=== PATIENT | female | born 1980 | race Two or more races ===

== ENCOUNTER 2021-02-06 20:02 | Emergency (ER) | payer MEDICAID, SELFPAY ==
--- NOTE | ~2021-02-06 | CT_ITS ---
EXAMINATION: CTA OF THE HEAD AND NECK CTA of the chest. CLINICAL INFORMATION: dizziness and syncope. head trauma. bleed? stroke? COMPARISON: CT head dated 09/14/2018 TECHNIQUE: Initial unenhanced CT images of the head were obtained. Test bolus sequences followed by intravenous administration of 70.3 mL of Omnipaque 350. Helical imaging was performed in the axial plane from the lung bases to the skull vertex. The entire chest was included as part of this study. Delayed postcontrast imaging of the head was also performed. The data was processed at the radiographic technologist's workstation for generation of MIP sequences. Three-dimensional volume rendered reformatted images were also generated at an offline 3-D workstation. Stenoses are assessed in accordance with NASCET criteria unless otherwise indicated. DLP: 09/20/2005 mGy-cm. FINDINGS: CT head: There is no evidence of acute intracranial hemorrhage or territorial infarction. There is no loss of villegas to white matter differentiation. No abnormal mass effect or midline shift is seen. No extra-axial fluid collections are identified. There is no abnormal enhancement. The ventricles are normal in size. There is no abnormal attenuation within the brain parenchyma. The osseous structures and soft tissues are normal. The mastoid air cells and visualized portions of the paranasal sinuses are well aerated. CTA neck and chest: The aortic arch is of normal contour and caliber. Pulmonary arteries appear patent without evidence of emboli. Classic 3 vessel branching pattern of the aortic arch. No significant stenosis of the branch origins. The common and internal carotid arteries opacify normally without focal stenosis or occlusion. At the left V3 segment, there is focal ectasia of the vertebral artery just proximal to its intradural extent, measuring up to 4 mm in diameter. Additionally, there is a oblique linear band of nonenhancing tissue which crosses the lumen of the vessel in this region of focal ectasia (see serrato images). This could correspond to a small pseudoaneurysm with a thin associated intimal flap. A focal fenestration of the vertebral artery (normal variant) is on the differential, though felt to be less likely. Surrounding soft tissues are unremarkable. No hematomas. No adjacent fractures. The cervical segments of the vertebral arteries otherwise opacify normally without focal stenosis or occlusion. The thyroid gland and remaining cervical soft tissues are within normal limits. No significant abnormalities of the cervical spine. The lungs appear clear aside from mild dependent atelectasis. Heart is normal in size. No acute mediastinal abnormalities are identified. No adenopathy. Imaged portion of the upper abdomen is unremarkable. Thoracic aorta is normal in caliber. CTA head: There is normal opacification of major intracranial arteries. No focal flow-limiting stenosis, discrete proximal large artery occlusion, or saccular intradural aneurysm. Normal contrast opacification of the petrous, cavernous, paraophthalmic, and supraclinoid segments of the internal carotid arteries without focal stenosis. Normal appearance of the anterior cerebral and middle cerebral arteries without focal occlusion or stenosis. Normal anterior communicating artery. Normal arborization of the middle cerebral arteries. Normal appearance of the intradural vertebral and posterior inferior cerebellar arteries. Normal appearance of the basilar, superior cerebellar, and P1 segments of the posterior cerebral arteries. Normally opacified posterior communicating arteries. Normal appearance of the distal segments of the posterior cerebral arteries bilaterally. CT/CT angio head neck IMPRESSION: 1. Focal ectasia of the V3 segment of the left vertebral artery with a thin crossing intimal flap, concerning for a small pseudoaneurysm. A small focal vertebral artery fenestration is also on the differential. No associated traumatic injuries are identified in this region. No surrounding hematomas. No additional acute vascular abnormalities are identified on the CTA of the head and neck. A dedicated neuroradiology over read will be provided in the morning. 2. No acute intracranial abnormalities. This critical result was discussed by telephone with JENNY Grimaldo at 02/07/2021 1:18 AM.
[2021-02-06 20:13] VITALS: BP 153/85; PULSE 67; RESP 16; BMI 32.3
--- NOTE | 2021-02-06 20:32 | ECG_ITS ---
Test Reason : DIZZINESS Blood Pressure : / mmHG Vent. Rate : 070 BPM Atrial Rate : 070 BPM P-R Int : 182 ms QRS Dur : 086 ms QT Int : 436 ms P-R-T Axes : 043 000 040 degrees QTc Int : 470 ms Normal sinus rhythm Normal ECG When compared with ECG of 14-SEP-2018 00:54, No significant change was found Referred By: Jarrod Izquierdo Electronically Signed By:Angus Gupta
[2021-02-06] MEDS: 0.9 % Sodium Chloride 1,000 ML 999 ML IV (20:40)
[2021-02-06 20:44] LABS: MANUAL DIFF FLAG NO
[2021-02-06 20:49] LABS: Basophils Percent Auto 0.3 % (0-2); Eosinophils Absolute Auto 0.2 X10*3/uL (0.0-0.4); Eosinophils Percent Auto 1.7 % (0-4); Hematocrit 35.7 % (37-47); Hemoglobin 11.6 g/dl (12.0-16.0); Imm Gran Abs Auto 0.05 X10*3/uL (0.00-0.03); Imm Gran Pct Auto 0.5 % (0.0-0.4); Lymphocytes Absolute Auto 3.2 X10*3/uL (1.2-4.9); Mean Corpuscular HGB Conc 32.5 g/dl (31.0-35.0); Mean Corpuscular Hemoglobin 28.4 pg (27.0-33.0); Mean Corpuscular Volume 87.5 fL (80-98); Mean Platelet Volume 9.7 fL (9.4-12.3); Monocytes Absolute Auto 0.8 X10*3/uL (0.1-1.2); Monocytes Percent Auto 8.8 % (2-11); Neutrophils Absolute Auto 5.2 X10*3/uL (2.0-8.3); Neutrophils Percent Auto 54.7 % (45-73); Platelet Count 349 X10*3/uL (160-400); Red Blood Count 4.08 X10*6/uL (4.20-5.50); Red Cell Distribution Width 13.2 % (11.0-16.0); White Blood Count 9.4 X10*3/uL (4.8-10.8)
[2021-02-06 20:53] LABS: Prothrombin Time 11.7 SEC (10.8-13.0)
[2021-02-06 20:58] VITALS: BP 130/75; PULSE 70
[2021-02-06 21:00] VITALS: BP 131/71; PULSE 89
[2021-02-06 21:02] VITALS: BP 136/67; PULSE 76
[2021-02-06 21:22] LABS: Alanine Aminotransferase 9 U/L (0-31); Alkaline Phosphatase 81 U/L (39-117); Anion Gap 12 (12-20); Aspartate Amino Transferase 11 U/L (5-31); Bilirubin Total 0.3 mg/dL (0.0-1.0); Blood Urea Nitrogen 16 mg/dL (9-16); Calcium 9.2 mg/dL (8.4-10.2); Carbon Dioxide 24 mmol/L (22-29); Chloride 108 mmol/L (96-108); Creatinine Clr Calc Pharmacy 123.6; Estimated Glomerular Filt Rate > 60; Glucose Random 94 mg/dL (60-115); Potassium 3.9 mmol/L (3.3-5.1); Sodium 140 mmol/L (135-145); Total Protein 6.9 g/dL (6.5-8.0)
[2021-02-06 21:29] LABS: Troponin-I High Sensitivity < 3.5 ng/L (<3.5-17.0)
[2021-02-06 21:35] LABS: Delay - Chemistry DELAY
--- NOTE | 2021-02-06 21:35 | ED.GENADULT ---
HPI - General Adult General Chief complaint: Dizziness Stated complaint: Syncope Time Seen by Provider: 02/06/21 20:31 Source: patient Mode of arrival: ambulatory Limitations: no limitations History of Present Illness HPI narrative: Patient brought to the ED Patient for evaluation. Patient presents to ED for fall 10 days ago and than syncopal episode yesterday. Patient states having dizziness the past 5 days. Patient was sent to the ED by [facility] WAREHOUSE ADMINISTRATOR Emery Carr. He informed that patient fell 10 days ago and than had syncopal episode yesterday. He states on physical exam patient has right sided facial numbness and right sided strength weaker than left. He states patient had similar presentation last year with normal head CT, NOrmal MRI ( of this november), NOrmal EEG, and normal carotid ultrasound. Patient states her right facial numbness, right upper/ leg weakness numbness has been present for 9 months since falling 9 months ago and she states all her tests were normal Related Data Previous Rx's Medication Instructions Recorded aspirin 81 mg PO DAILY #30 tab 02/07/21 Allergies Allergy/AdvReac Type Severity Reaction Status Date / Time No Known Allergies Allergy Unverified 05/04/20 19:30 [No Known Allergies*] Review of Systems Review of Systems: Yes all other systems are reviewed and are negative Constitutional: Constitutional: Reports as per HPI and Reports no additional constitutional complaints Eyes: Eyes: Reports as per HPI and Reports no additional eye complaints ENT: Reports system reviewed and no additional complaints, except as documented, Reports as per HPI and Reports dizziness Cardiovascular: Cardiovascular: Reports as per HPI, Reports no additional cardiovascular complaints and Reports syncope Comments: Syncope Respiratory: Respiratory: Reports as per HPI and Reports no additional respiratory complaints Gastrointestinal: Gastrointestinal: Reports as per HPI and Reports no additional gastrointestinal complaints Genitourinary: Genitourinary: Reports no additional female genitourinary complaints and Reports as per HPI Musculoskeletal: Musculoskeletal: Reports no additional musculoskeletal complaints, Reports as per HPI and Reports numbness (Right-sided body for 9 months) Neurologic: Reports system reviewed and no additional complaints, except as documented, Reports as per HPI, Reports dizziness, Reports syncope and Reports numbness (Right-sided body for 9 months) Comments: right arm/leg weakness chronic for 9 months. right face numbness for 9 months. Psychiatric: Psychiatric: Reports no additional psychiatric complaints and Reports as per HPI [facility] Social History Social History Alcohol intake: unknown Patient Tobacco Use Status: Tobacco use Unknown Use of substances other than those prescribed or required for medical reasons: Unknown Advance Directives: No Advance Directives Information Provided: Yes Physical Exam Vital Signs: Vital Signs: Last Vital Signs Pulse 67 02/07/21 02:00 Resp 14 02/07/21 02:00 BP 124/55 L 02/07/21 02:00 Pulse Ox 99 02/07/21 02:00 Body Mass Index 32.3 Const: General: cooperative, healthy appearing, comfortable, no acute distress, well developed, alert, awake and Physically active HENMT: Head: Yes normal to inspection, Yes No palpable skull fracture present, Yes normocephalic and Yes atraumatic Eyes: General: appearance normal, both eyes and all related structures Neck: Neck: Yes normal visual inspection, Yes full ROM, Yes no lymphadenopathy, Yes no meningeal signs, Yes trachea midline, Yes supple and No tender Chest: Chest palpation & inspection: normal inspection of the chest and normal palpation of entire chest wall Resp: Effort & Inspection: normal respiratory effort and able to speak in complete sentences Auscultation: clear to auscultation bilaterally Cardio: Jugular venous distension: no JVD Heart sounds: S1 normal heart sound present and S2 normal heart sound present GI: Inspection: Yes normal to inspection and No abdominal wall ecchymosis Palpation (GI): Soft to palpation, not firm, nontender, no guarding and not rigid : General: No CVA tenderness and Yes no CVA tenderness Back/Spine/Pelvis: Back: no CVA tenderness, No CVA tenderness and No back tenderness Skin: General skin exam: no rashes or lesions noted and elasticity normal Neuro: Other: Negative facial droop. Negative negative pronator drift. Negative slurred speech. Left upper and lower extremity strengyh is 5+. Right upper extremity strength is 4+ and Right lower extremity strenght is 3+. Patient's states right facial numbness and right lower and upper extremity weakness present the past 9 months and has not worsened. Negtive rhomberg. Finger to nose and rapid hand movement is intact. gait is negative for ataxia. General: no meningeal signs Extrem: General: Yes normal to inspection and Yes full ROM Psych: Appearance: grossly normal, well kempt and not disheveled Course Course Course Narrative: With medical evaluation including EKG, labs, troponin. Negative for any acute neuro deficits. Due to patient stating fall ten days ago and syncopal episode yesterday will order a head CT to look for brain bleed and any clot in carotid. Not suspecting PE. Negative for Control pill use, recent surgery or recent long travel, history of blood clots. Reevaluation(s) Reevaluation #1: Negative for any new neuro Deficit., EKG normal sinus rhythm and negative STEMI. Patient's 1st troponin negative. Patient labs are normal. UA negative for UTI. To be sent for head CTA. Blood in urine. Patient is presently on menstrution Time: 22:57 Reevaluation #2: Second troponin is negative. 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 [facility] transfer line neurosurgery will be called Time: 01:18 Reevaluation #3: Spoke with Dr. Dimas, Neuro Endovascular Surgeon of [facility], and he was informed of patient's history, physical exam, labs and ct scan readings. He states patient does not need to be transferred and can be discharged with outpatient [facility] Neuro Surgery FOllow up. Patient will be discharged with aspirin 81mg. Time: 02:09 Medical Decision Making MDM Narrative Medical decision making narrative: Syncope. Pseudoaneurysm Lab Data Result diagrams: 02/06/21 20:39 02/06/21 20:39 Labs: Lab Results 02/06/21 02/06/21 02/06/21 Range/Units 20:39 20:39 20:39 WBC 9.4 (4.8-10.8) X10*3/uL RBC 4.08 L (4.20-5.50) X10*6/uL Hgb 11.6 L (12.0-16.0) g/dl Hct 35.7 L (37-47) % MCV 87.5 (80-98) fL MCH 28.4 (27.0-33.0) pg MCHC 32.5 (31.0-35.0) g/dl RDW 13.2 (11.0-16.0) % Plt Count 349 (160-400) X10*3/uL MPV 9.7 (9.4-12.3) fL Immature Gran % (Auto) 0.5 H (0.0-0.4) % Neut % (Auto) 54.7 (45-73) % Lymph % (Auto) 34.0 (20-40) % [place] % (Auto) 8.8 (2-11) % Eos % (Auto) 1.7 (0-4) % Baso % (Auto) 0.3 (0-2) % Lymph # (Auto) 3.2 (1.2-4.9) X10*3/uL [place] # (Auto) 0.8 (0.1-1.2) X10*3/uL Eos # (Auto) 0.2 (0.0-0.4) X10*3/uL Baso # (Auto) 0.0 (0.0-0.2) X10*3/uL Abs Immat Gran (auto) 0.05 H (0.00-0.03) X10*3/uL Absolute Neuts (auto) 5.2 (2.0-8.3) X10*3/uL Absolute Nucleated RBC 0.000 (0.0-0.012) X10*3/uL Nucleated RBC % (auto) 0.0 (0.0-0.2) /100WBC PT 11.7 (10.8-13.0) SEC INR 1.0 (0.9-1.1) APTT 30.0 (24.1-38.0) SEC Sodium 140 (135-145) mmol/L Potassium 3.9 (3.3-5.1) mmol/L Chloride 108 (96-108) mmol/L Carbon Dioxide 24 (22-29) mmol/L Anion Gap 12 (12-20) BUN 16 (9-16) mg/dL Creatinine 0.70 (0.5-1.4) mg/dL Estim Creat Clear Calc 123.6 Estimated GFR > 60 Random Glucose 94 (60-115) mg/dL Calcium 9.2 (8.4-10.2) mg/dL Total Bilirubin 0.3 (0.0-1.0) mg/dL AST 11 (5-31) U/L ALT 9 (0-31) U/L Alkaline Phosphatase 81 (39-117) U/L Troponin I High Sens (<3.5-17.0) ng/L Total Protein 6.9 (6.5-8.0) g/dL Albumin 4.0 (3.5-5.0) g/dL Beta HCG, Quant < 2 mIU/mL Specimen Comment Urine Color Urine Appearance Urine pH (5.0-8.0) Ur Specific [place] (1.005-1.025) Urine Protein (NEG-TRACE) MG/DL Urine Glucose (UA) (NEG) MG/DL Urine Ketones (NEG) MG/DL Urine Blood (NEG) Urine Nitrite (NEG) Ur Leukocyte Esterase (NEG) Urine RBC (0) /HPF Urine WBC (0-4) /HPF Ur Squamous Epith Cells /LPF Urine Bacteria /LPF Urine Test (NEGATIVE) 02/06/21 02/06/21 02/06/21 Range/Units 20:39 20:39 22:57 WBC (4.8-10.8) X10*3/uL RBC (4.20-5.50) X10*6/uL Hgb (12.0-16.0) g/dl Hct (37-47) % MCV (80-98) fL MCH (27.0-33.0) pg MCHC (31.0-35.0) g/dl RDW (11.0-16.0) % Plt Count (160-400) X10*3/uL MPV (9.4-12.3) fL Immature Gran % (Auto) (0.0-0.4) % Neut % (Auto) (45-73) % Lymph % (Auto) (20-40) % Berg[place] % (Auto) (2-11) % Eos % (Auto) (0-4) % Baso % (Auto) (0-2) % Lymph # (Auto) (1.2-4.9) X10*3/uL [place] # (Auto) (0.1-1.2) X10*3/uL Eos # (Auto) (0.0-0.4) X10*3/uL Baso # (Auto) (0.0-0.2) X10*3/uL Abs Immat Gran (auto) (0.00-0.03) X10*3/uL Absolute Neuts (auto) (2.0-8.3) X10*3/uL Absolute Nucleated RBC (0.0-0.012) X10*3/uL Nucleated RBC % (auto) (0.0-0.2) /100WBC PT (10.8-13.0) SEC INR (0.9-1.1) APTT (24.1-38.0) SEC Sodium (135-145) mmol/L Potassium (3.3-5.1) mmol/L Chloride (96-108) mmol/L Carbon Dioxide (22-29) mmol/L Anion Gap (12-20) BUN (9-16) mg/dL Creatinine (0.5-1.4) mg/dL Estim Creat Clear Calc Estimated GFR Random Glucose (60-115) mg/dL Calcium (8.4-10.2) mg/dL Total Bilirubin (0.0-1.0) mg/dL AST (5-31) U/L ALT (0-31) U/L Alkaline Phosphatase (39-117) U/L Troponin I High Sens < 3.5 (<3.5-17.0) ng/L Total Protein (6.5-8.0) g/dL Albumin (3.5-5.0) g/dL Beta HCG, Quant mIU/mL Specimen Comment DELAY Urine Color YELLOW Urine Appearance CLEAR Urine pH 6.0 (5.0-8.0) Ur Specific [place] 1.020 (1.005-1.025) Urine Protein NEG (NEG-TRACE) MG/DL Urine Glucose (UA) NEG (NEG) MG/DL Urine Ketones NEG (NEG) MG/DL Urine Blood 2+ H (NEG) Urine Nitrite NEG (NEG) Ur Leukocyte Esterase NEG (NEG) Urine RBC 50-75 H (0) /HPF Urine WBC 0-2 (0-4) /HPF Ur Squamous Epith Cells 3+ /LPF Urine Bacteria NONE /LPF Urine Test (NEGATIVE) 02/06/21 02/07/21 Range/Units 22:57 00:37 WBC (4.8-10.8) X10*3/uL RBC (4.20-5.50) X10*6/uL Hgb (12.0-16.0) g/dl Hct (37-47) % MCV (80-98) fL MCH (27.0-33.0) pg MCHC (31.0-35.0) g/dl RDW (11.0-16.0) % Plt Count (160-400) X10*3/uL MPV (9.4-12.3) fL Immature Gran % (Auto) (0.0-0.4) % Neut % (Auto) (45-73) % Lymph % (Auto) (20-40) % [place] % (Auto) (2-11) % Eos % (Auto) (0-4) % Baso % (Auto) (0-2) % Lymph # (Auto) (1.2-4.9) X10*3/uL [place] # (Auto) (0.1-1.2) X10*3/uL Eos # (Auto) (0.0-0.4) X10*3/uL Baso # (Auto) (0.0-0.2) X10*3/uL Abs Immat Gran (auto) (0.00-0.03) X10*3/uL Absolute Neuts (auto) (2.0-8.3) X10*3/uL Absolute Nucleated RBC (0.0-0.012) X10*3/uL Nucleated RBC % (auto) (0.0-0.2) /100WBC PT (10.8-13.0) SEC INR (0.9-1.1) APTT (24.1-38.0) SEC Sodium (135-145) mmol/L Potassium (3.3-5.1) mmol/L Chloride (96-108) mmol/L Carbon Dioxide (22-29) mmol/L Anion Gap (12-20) BUN (9-16) mg/dL Creatinine (0.5-1.4) mg/dL Estim Creat Clear Calc Estimated GFR Random Glucose (60-115) mg/dL Calcium (8.4-10.2) mg/dL Total Bilirubin (0.0-1.0) mg/dL AST (5-31) U/L ALT (0-31) U/L Alkaline Phosphatase (39-117) U/L Troponin I High Sens < 3.5 (<3.5-17.0) ng/L Total Protein (6.5-8.0) g/dL Albumin (3.5-5.0) g/dL Beta HCG, Quant mIU/mL Specimen Comment Urine Color Urine Appearance Urine pH (5.0-8.0) Ur Specific [place] (1.005-1.025) Urine Protein (NEG-TRACE) MG/DL Urine Glucose (UA) (NEG) MG/DL Urine Ketones (NEG) MG/DL Urine Blood (NEG) Urine Nitrite (NEG) Ur Leukocyte Esterase (NEG) Urine RBC (0) /HPF Urine WBC (0-4) /HPF Ur Squamous Epith Cells /LPF Urine Bacteria /LPF Urine Test NEGATIVE (NEGATIVE) ECG Data Interpretation: Normal Sinus Rhythm. Vent 70. VA interval 182, HR 86, and QTC 470. Negative stemi Discharge Plan Discharge Clinical Impression: Syncope Patient Disposition: Home, Self-Care Instructions: Syncope (ED), Pseudoaneurysm (ED) Additional Instructions: Regrese al servicio de urgencias de inmediato por cualquier nueva debilidad, dificultad para hablar, p?rdida de la visi?n, par?lisis de las extremidades, dolor de brigette, mareos, dolor en el pecho, dificultad para respirar y herida o cualquier otro s?ntoma preocupante. por favor, oskar un seguimiento con el Dr. Braeden Dimas, de [facility] Neurology. Llame a newman oficina al [phone]. Direcci?n: [address] [place] [address]. Tiene un pseudoaneurisma de la arteria vertebral [place]quier[place] Prescriptions: New aspirin 81 mg tablet,chewable 81 mg PO DAILY Qty: 30 RF: 0 Stand Alone Forms: Work/School Release Print Language: Serbian
[2021-02-06 22:00] VITALS: BP 127/77; PULSE 72; RESP 18; O2SAT 99
[2021-02-06 23:06] LABS: Glucose Urine UA NEG (NEG); Leukocyte Esterase Urine NEG (NEG); Nitrite Urine NEG (NEG); Urine Blood 2+ (NEG); Urine Ketones NEG (NEG); Urine Protein NEG (NEG-TRACE)
[2021-02-06 23:08] LABS: Appearance Urine CLEAR; Color Urine YELLOW
[2021-02-06 23:09] LABS: UPreg QC Valid YES; Urine Pregnancy NEGATIVE (NEGATIVE)
[2021-02-06 23:09] LABS: HCG Quantitative < 2 mIU/mL
[2021-02-06] MEDS: Acetaminophen 325 MG TABLET 650 MG PO (23:11)
[2021-02-06 23:13] LABS: RBC Urine 50-75 /HPF (0); Squamous Epithelial Cell Urine 3+ /LPF; WBC Urine 0-2 /HPF (0-4)
[2021-02-06 23:47] VITALS: BP 122/55; PULSE 67; RESP 14; O2SAT 99
[2021-02-07] MEDS: iohexoL 350 MG/ML 100 ML INFUS..BTL 70 ML IV (00:04)
[2021-02-07 01:40] LABS: Troponin-I High Sensitivity < 3.5 ng/L (<3.5-17.0)
[2021-02-07 02:00] VITALS: BP 124/55; PULSE 67; RESP 14; O2SAT 99
== END 2021-02-07 03:09 | disposition home or self-care (01) ==
PROVIDERS: Physician Assistant; Emergency Provider Student in an Organized Health Care Education/Training Program
DX: R55 Syncope and collapse (principal); R20.0 Anesthesia of skin; R53.1 Weakness; Z91.81 History of falling
CPT/HCPCS: 36415; 70496; 70498; 80053; 81001; 81025; 84484; 84702; 85025; 85610; 85730; 93005; 96360; 99284; 99285; Q9967

== ENCOUNTER 2021-07-05 20:48 | Emergency (ER) | payer MEDICAID, SELFPAY ==
[2021-07-05 21:00] VITALS: BP 138/90; BP 142/78; PULSE 78; PULSE 94; RESP 18; TEMP 36.6; O2SAT 98; BMI 27.4
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
[2021-07-05 23:34] LABS: Appearance Urine HAZY; Color Urine YELLOW; Glucose Urine UA NEG (NEG); Leukocyte Esterase Urine NEG (NEG); Nitrite Urine NEG (NEG); Specific Gravity - Urine >= 1.030 (1.005-1.025); UACC Culture Trigger NO; Urine Blood 2+ (NEG); Urine Ketones 5 MG/DL (NEG); Urine Protein TRACE MG/DL (NEG-TRACE)
[2021-07-05 23:36] LABS: UPreg QC Valid YES; Urine Pregnancy NEGATIVE (NEGATIVE)
[2021-07-05 23:49] LABS: Bacteria Urine 2+ /LPF; Mucus Urine 2+ /LPF; Squamous Epithelial Cell Urine 2+ /LPF
[2021-07-05 23:50] LABS: Sperm Urine NOTED
[2021-07-06 01:06] VITALS: BP 103/40; PULSE 76; RESP 16; O2SAT 99
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
[2021-07-06] MEDS: levonorgestreL 1.5 MG TABLET PO (01:15)
[2021-07-06] MEDS: Acetaminophen 325 MG TABLET 650 MG PO (01:16)
[2021-07-06] MEDS: metroNIDAZOLE 500 MG TABLET PO (01:17)
[2021-07-06] MEDS: cefTRIAXone sodium 500 MG, Lidocaine HCl 1 % MPF 1 ML IM (01:18)
[2021-07-06] MEDS: Post Exposure Medication Kit 1 KIT PO (03:24)
[2021-07-06] MEDS: Raltegravir Potassium 400 MG TABLET PO (03:25)
[2021-07-06 03:39] VITALS: RESP 20
--- NOTE | 2021-07-06 03:41 | PC.NURSE ---
pt a&o, no distress at time of discharge, resource information reviewed, along with medications. Reviewed discharge instructions. pt verbalized understanding.
[2021-07-06 08:38] LABS: Syphilis Screen Nonreactive (Nonreactive)
[2021-07-06 08:54] LABS: CT PCR NOT DETECTED (Not Detect.); NG PCR NOT DETECTED (Not Detect.)
[2021-07-06 09:05] LABS: HBsAGNum1 0.13 S/CO (0.00-0.99); Hepatitis A Antibody IgM 0.24 Index (0-0.79); Hepatitis B Surface Antigen Negative (Negative); ~HepC Num1 0.12 S/CO (0.00-0.79); ~Hepatitis A Antibody IgM Nonreactive (Nonreactive); ~Hepatitis C Antibody Nonreactive (Nonreactive)
[2021-07-06 09:25] LABS: HBc Num1 0.11 S/CO (0.00-0.79); HIV AB/AG Nonreactive (Nonreactive); HIV Num 1 0.07 S/CO (0.00-0.99); Hepatitis B Core Antibody Nonreactive (Nonreactive); ~Hepatitis B Surface Antibody NONREACTIVE (Nonreactive)
== END 2021-07-06 03:45 | disposition home or self-care (01) ==
PROVIDERS: Physician Assistant; Emergency Provider Emergency Medicine; PCP Internal Medicine
DX: T74.21XA Adult sexual abuse, confirmed, initial encounter (principal); Y07.03 Male partner, perpetrator of maltreatment and neglect
CPT/HCPCS: 36415; 81001; 81025; 86704; 86706; 86709; 86780; 86803; 87340; 87389; 87491; 87591; 96372; 99285; J0696

== ENCOUNTER 2021-10-26 19:34 | Emergency (ER) | payer OTHER, MEDICAID, SELFPAY ==
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
[2021-10-26 19:39] VITALS: BP 132/79; PULSE 78; RESP 18; TEMP 36.9; O2SAT 98; BMI 36.9
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
[2021-10-26] MEDS: Ibuprofen 600 MG TABLET PO (21:40)
[2021-10-26] MEDS: Cyclobenzaprine HCl 10 MG TABLET PO (21:40)
== END 2021-10-26 22:53 | disposition home or self-care (01) ==
PROVIDERS: Emergency Provider Emergency Medicine
DX: S09.90XA Unspecified injury of head, initial encounter (principal); S46.912A Strain of unspecified muscle, fascia and tendon at shoulder and upper arm level, left arm, initial encounter; S70.12XA Contusion of left thigh, initial encounter; V43.52XA Car driver injured in collision with other type car in traffic accident, initial encounter; Y93.89 Activity, other specified; Y92.414 Local residential or business street as the place of occurrence of the external cause; Y99.8 Other external cause status
CPT/HCPCS: 70450; 73030; 99284

== ENCOUNTER 2023-01-22 19:32 | Observation (INO) | payer MEDICAID, SELFPAY ==
--- NOTE | ~2023-01-22 | CT_ITS ---
EXAMINATION: CTA NECK WITH CONTRAST (STROKE) CTA BRAIN WITH CONTRAST (STROKE) CLINICAL INFORMATION: Stroke, right-sided weakness. COMPARISON: CT scan of the head earlier 01/22/2023. TECHNIQUE: CTA of the head and neck was performed in the axial plane from the mediastinum to the skull vertex using 70 mL Omnipaque 350 intravenous contrast. Additional reformatted multiplanar images including maximum intensity projection MIP images are generated on the CT workstation. This CT examination was performed using dose optimization techniques as appropriate, variously including the following: *Automated exposure control *Adjustment of mA and/or kV according to patient size (this includes techniques or standardized protocols for targeted exams where dose is matched to indication/reason for exam; i.e. extremities or head) *Use of iterative reconstruction technique DLP: 1375 mGy-cm FINDINGS: CT Head: There is no evidence of acute intracranial hemorrhage or territorial infarction. No abnormal mass-effect or midline shift is seen. [place] to white matter differentiation is well preserved. No extra-axial fluid collections are identified. There is no abnormal enhancement. The ventricles are normal in size. There is no abnormal attenuation within the brain parenchyma. The osseous structures and soft tissues are normal. The mastoid air cells and visualized portions of the paranasal sinuses are well-aerated. CTA Neck: Imaging is slightly degraded by beam hardening artifact from contrast in the right subclavian and brachiocephalic veins. There is a classic configuration of the arch of the aorta. The great vessels of the neck are widely patent. The subclavian arteries appear normal bilaterally. The common carotid arteries have normal caliber. The carotid bifurcations bilaterally appear normal. The internal carotid arteries in the neck bilaterally have uniform and normal caliber. The origins of both vertebral arteries are well seen and appear normal. Both vertebral arteries are widely patent and demonstrate good opacification throughout their cervical course. The left vertebral artery is slightly dominant. Nonvascular: The upper lung negro appear well-aerated. The thyroid gland appears normal. There is no cervical lymphadenopathy. There is a mild dextroscoliosis in the lower thoracic spine. There are no acute fractures or subluxations. There are moderately prominent lingual and palatine tonsils. CTA head: The intracranial internal carotid arteries and their bifurcations appear normal. The middle and anterior cerebral arteries bilaterally demonstrate normal caliber with no evidence of focal stenosis, aneurysm or vascular malformation. There is normal arborization of the middle cerebral artery branches. The anterior communicating artery is normal. In the posterior circulation, the left vertebral artery is dominant. The vertebral arteries intradurally have normal caliber. The basilar artery appears normal. The posterior cerebral arteries have normal caliber. There is good opacification of the dural venous sinuses. CT/CT angio head neck stroke IMPRESSION: CT head and neck: 1. There are no acute bleeds or territorial infarcts. 2. There are no intracranial masses or areas of abnormal enhancement. 3. There are moderately prominent lingual and palatine tonsils. There is no cervical lymphadenopathy. CTA head and neck: 1. There are no flow-limiting stenoses in the upper chest or neck. 2. There are no focal stenoses, aneurysms or vascular malformations. This critical result was given to Trae Brian by telephone on 01/22/2023 at 9:20 PM and it was ascertained that the content and urgency of the report was understood at the time of direct communication.
--- NOTE | ~2023-01-22 | MR_ITS ---
MRI OF THE BRAIN WITHOUT IV CONTRAST INDICATION: CVA. Right-sided weakness. COMPARISON: Head CT and CTA head and neck 01/22/2023. TECHNIQUE: Multiplanar multisequence MR imaging of the brain was obtained without IV contrast. FINDINGS: There is no hydrocephalus, extra-axial surface collection, or herniation. No parenchymal signal abnormality. The major flow voids at the skull base are preserved. There is no acute infarct on diffusion-weighted imaging. There is no intracranial hemorrhage on the gradient recalled echo acquisition. The midline structures are normal. The cerebellar tonsils are normally positioned. The cerebellum and brainstem are normal. The craniocervical junction is normal. Osseous marrow signal intensity is homogenous. The visualized soft tissues are unremarkable. MR/MR head/brain wo con IMPRESSION: There are no acute intracranial findings. No acute infarcts.
--- NOTE | ~2023-01-22 | CT_ITS ---
EXAMINATION: CT head for stroke CLINICAL INFORMATION: Reason for Exam stroke COMPARISON: CT brain 10/26/2021 TECHNIQUE: Contiguous axial imaging was performed from the skull base to vertex without intravenous contrast. Sagittal and coronal reformatted images were obtained. This CT examination was performed using dose optimization techniques as appropriate, variously including the following: * Automated exposure control * Adjustment of mA and/or kV according to patient size (this includes techniques or standardized protocols for targeted exams where dose is matched to indication/reason for exam; i.e. extremities or head) Use of iterative reconstruction technique DLP: 632 mGy-cm FINDINGS: No acute osseous or soft tissue abnormality. The mastoid air cells and visualized portions of the paranasal sinuses are well aerated. There is no evidence of acute intracranial hemorrhage or territorial infarction. No abnormal mass effect or midline shift is seen. [place] to white matter differentiation is well preserved. No extra-axial fluid collections are identified. No hydrocephalus. CT/CT head for stroke IMPRESSION: 1. No acute intracranial abnormality. The findings and recommendations were discussed with Trae Brian MD by telephone at 01/22/2023 8:39 PM and it was ascertained that the content and urgency of the report was understood at the time of direct communication.
[2023-01-22 19:50] VITALS: BP 140/86; PULSE 72; RESP 18; TEMP 36.1; O2SAT 97; BMI 39.4
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
--- NOTE | 2023-01-22 20:09 | ECG_ITS ---
Test Reason : STROKE Blood Pressure : / mmHG Vent. Rate : 064 BPM Atrial Rate : 064 BPM P-R Int : 192 ms QRS Dur : 084 ms QT Int : 460 ms P-R-T Axes : 051 005 037 degrees QTc Int : 474 ms Normal sinus rhythm Normal ECG When compared with ECG of 06-FEB-2021 20:56, No significant change was found Referred By: Trae Brian Electronically Signed By:Angus Gupta
[2023-01-22 20:16] VITALS: BP 147/88; PULSE 61; RESP 18; TEMP 36.6; O2SAT 98
[2023-01-22 20:23] LABS: Glucose, Whole Blood 92 mg/dL (60-115)
[2023-01-22 20:25] LABS: Prothrombin Time Whole Bld POC 12.1 sec (11.1-13.5)
[2023-01-22] MEDS: iohexoL 350 MG/ML 100 ML INFUS..BTL IV (20:35)
[2023-01-22 20:55] LABS: MANUAL DIFF FLAG NO
[2023-01-22] MEDS: 0.9 % Sodium Chloride 1,000 ML 999 ML IV (20:56)
[2023-01-22 20:57] LABS: Basophils Percent Auto 0.5 % (0-2); Eosinophils Absolute Auto 0.2 X10*3/uL (0.0-0.4); Eosinophils Percent Auto 2.3 % (0-4); Hematocrit 34.7 % (37.0-47.0); Hemoglobin 11.1 g/dl (12.0-16.0); Imm Gran Abs Auto 0.04 X10*3/uL (0.00-0.03); Imm Gran Pct Auto 0.5 % (0.0-0.4); Lymphocytes Absolute Auto 3.3 X10*3/uL (1.2-4.9); Lymphocytes Percent Auto 37.5 % (20-40); Mean Corpuscular Hemoglobin 26.9 pg (27.0-33.0); Mean Platelet Volume 9.2 fL (9.4-12.3); Monocytes Absolute Auto 0.6 X10*3/uL (0.1-1.2); Neutrophils Absolute Auto 4.5 x10*3/uL (2.0-8.3); Neutrophils Percent Auto 52.2 % (45-73); Platelet Count 378 X10*3/uL (160-400); Red Blood Count 4.13 X10*6/uL (4.20-5.50); Red Cell Distribution Width 14.4 % (11.0-16.0); White Blood Count 8.7 X10*3/uL (4.8-10.8)
[2023-01-22] MEDS: Metoclopramide HCl 10 MG/2 ML VIAL IVPUSH (20:57)
[2023-01-22] MEDS: Ketorolac Tromethamine 15 MG/ML VIAL IVPUSH (20:57)
[2023-01-22 21:05] LABS: Prothrombin Time 11.1 SEC (10.0-13.1)
--- NOTE | 2023-01-22 21:07 | PC.NURSE ---
Patient alert and oriented x3. Boyfriend at bedside. Patient reports tongue numbness, right sided facial droop and BRYSON. Neuro assessment indicative slight right sided weakness. MD made aware. Patient brought to CT scan for dry scan and IV contrast scan. Labs drawn. EKG completed, POC collected. Vitals stable. Medications administered as per MAR. Will continue to follow plan of care.
[2023-01-22 21:08] LABS: Partial Thromboplastin Time 26.4 SEC (26.0-36.4)
--- NOTE | 2023-01-22 21:11 | PC.NURSE ---
Patient refused aspirin dose citing heart slows down after taking asiprin. made aware
[2023-01-22 21:13] LABS: Stroke Lab Use COMPLETE
[2023-01-22 21:30] LABS: Troponin-I High Sensitivity < 2.7 ng/L (<3.5-17.0)
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
[2023-01-22 21:52] LABS: Alanine Aminotransferase 12 U/L (0-31); Albumin Level 3.9 g/dL (3.5-5.0); Alkaline Phosphatase 72 U/L (39-117); Anion Gap 12 (12-20); Aspartate Amino Transferase 10 U/L (5-31); Bilirubin Total 0.2 mg/dL (0.0-1.0); Blood Urea Nitrogen 11 mg/dL (9-16); Calcium 8.8 mg/dL (8.4-10.2); Carbon Dioxide 21 mmol/L (22-29); Chloride 111 mmol/L (96-108); Creatinine Clr Calc Pharmacy 121.8; Estimated Glomerular Filt Rate > 60; Glucose Random 85 mg/dL (60-115); Lipase 30 U/L (8-78); Potassium 3.6 mmol/L (3.3-5.1); Sodium 140 mmol/L (135-145); Total Protein 6.9 g/dL (6.5-8.0)
--- NOTE | 2023-01-22 22:02 | PHA.MEDREC ---
Pharmacy Consult ? Medication Reconciliation Pharmacy has completed the medication reconciliation. spoke with patient. She says she does not take any medications.
[2023-01-23 02:31] VITALS: PULSE 60; RESP 14; O2SAT 100
[2023-01-23 05:37] LABS: MANUAL DIFF FLAG NO
[2023-01-23 05:40] LABS: Basophils Percent Auto 0.6 % (0-2); Eosinophils Absolute Auto 0.2 X10*3/uL (0.0-0.4); Eosinophils Percent Auto 2.6 % (0-4); Hematocrit 34.3 % (37.0-47.0); Hemoglobin 10.9 g/dl (12.0-16.0); Imm Gran Abs Auto 0.03 X10*3/uL (0.00-0.03); Imm Gran Pct Auto 0.4 % (0.0-0.4); Lymphocytes Absolute Auto 2.5 X10*3/uL (1.2-4.9); Lymphocytes Percent Auto 34.6 % (20-40); Mean Corpuscular HGB Conc 31.8 g/dl (31.0-35.0); Mean Corpuscular Hemoglobin 26.8 pg (27.0-33.0); Mean Corpuscular Volume 84.5 fL (80.0-98.0); Mean Platelet Volume 9.4 fL (9.4-12.3); Monocytes Absolute Auto 0.6 X10*3/uL (0.1-1.2); Monocytes Percent Auto 8.2 % (2-11); Neutrophils Absolute Auto 3.8 x10*3/uL (2.0-8.3); Neutrophils Percent Auto 53.6 % (45-73); Platelet Count 373 X10*3/uL (160-400); Red Blood Count 4.06 X10*6/uL (4.20-5.50); Red Cell Distribution Width 14.2 % (11.0-16.0); White Blood Count 7.2 X10*3/uL (4.8-10.8)
[2023-01-23 05:52] LABS: Anion Gap 8 (12-20); Blood Urea Nitrogen 10 mg/dL (9-16); Calcium 8.5 mg/dL (8.4-10.2); Carbon Dioxide 25 mmol/L (22-29); Chloride 111 mmol/L (96-108); Creatinine Clr Calc Pharmacy 114.9; Estimated Glomerular Filt Rate > 60; Glucose Random 101 mg/dL (60-115); Potassium 3.7 mmol/L (3.3-5.1); Sodium 140 mmol/L (135-145)
[2023-01-23 06:00] VITALS: BP 112/47; PULSE 62; RESP 14; TEMP 37; O2SAT 98
--- NOTE | 2023-01-23 07:22 | PC.NURSE ---
PT SLEEPING AT THIS TIME
[2023-01-23] MEDS: 0.9 % Sodium Chloride Flush 3 ML SYRINGE IVFLUSH (07:35)
[2023-01-23 07:36] LABS: Cholesterol 122 mg/dL; HDL Cholesterol 29 mg/dL; LDL Cholesterol Calculated 78 mg/dl; Triglycerides 75 mg/dL
[2023-01-23 08:27] VITALS: BP 112/47; PULSE 62; O2SAT 98
[2023-01-23] MEDS: Aspirin Enteric Coated 81 MG TABLET.DR PO (09:06)
--- NOTE | 2023-01-23 09:46 | P.PNIM_ITS ---
Subjective Subjective Date of Service: 01/23/23 Interval History: right occipital headache, right upper extremity weakness Physical Exam Vital Signs: Vital Signs: Last Vital Signs Temp 98.6 F 01/23/23 06:00 Pulse 62 01/23/23 08:27 Resp 14 01/23/23 06:00 BP 112/47 L 01/23/23 08:27 Pulse Ox 98 01/23/23 08:27 O2 Del Method Room Air 01/23/23 06:00 BMI result Body Mass Index 39.4 General: AO X 3, no acute distress Resp: CTA bilateral, no accessory muscles used CVS: S1,S2,RRR GI: soft, non tender, non distended Neuro: motor grossly intact, alert Psych: appropriate affect, appropriate insight Objective Data Active Medications Acetaminophen (Acetaminophen 325 Mg Tablet) 650 mg PO Q6H PRN PRN Reason: Pain, Mild (Pain Scale 1-3) Aspirin (Aspirin Enteric Coated 81 Mg Tablet.) 81 mg PO DAILY [facility] Last Admin: 01/23/23 09:06 Dose: 81 mg Documented By: CORY Atorvastatin Calcium (Atorvastatin Calcium 80 Mg Tablet) 80 mg PO BEDTIME [facility] Enoxaparin Sodium (Enoxaparin Sodium 40 Mg/0.4 Ml Syringe) 40 mg SUBCUT Q24H [facility] Last Admin: 01/22/23 21:56 Dose: Not Given Documented By: ERLINDA Non-Admin Reason: pt refused Melatonin (Melatonin 3 Mg Tablet) 6 mg PO BEDTIME PRN PRN Reason: Insomnia Ondansetron HCl (Ondansetron Hcl 4 Mg/2 Ml Vial) 4 mg IVPUSH Q8H PRN PRN Reason: Nausea and Vomiting Pharmacy Consult (Consult Rx Perform Med Rec) 1 each MISCELLANE ONCE PRN PRN Reason: Consult order Sodium Chloride (0.9 % Sodium Chloride Flush 3 Ml Syringe) 3 ml IVFLUSH QSHIFT [facility] Last Admin: 01/23/23 07:35 Dose: 3 ml Documented By: MECHE Labs 01/23/23 05:15 01/23/23 05:15 Labs: Laboratory Results - last 24 hr 01/22/23 01/22/23 01/22/23 20:16 20:17 20:45 MCV 84.0 MCH 26.9 L MCHC 32.0 RDW 14.4 Plt Count 378 MPV 9.2 L Immature Gran % (Auto) 0.5 H Neut % (Auto) 52.2 Lymph % (Auto) 37.5 [place] % (Auto) 7.0 Eos % (Auto) 2.3 Baso % (Auto) 0.5 Lymph # (Auto) 3.3 [place] # (Auto) 0.6 Eos # (Auto) 0.2 Baso # (Auto) 0.0 Abs Immat Gran (auto) 0.04 H Absolute Neuts (auto) 4.5 Absolute Nucleated RBC 0.000 Nucleated RBC % (auto) 0.0 PT Whole Blood PT 12.1 INR Whole Blood INR 1.0 APTT Anion Gap Estim Creat Clear Calc Estimated GFR POC Glucose 92 Random Glucose Calcium Total Bilirubin AST ALT Alkaline Phosphatase Total Creatine Kinase Troponin I High Sens Total Protein Albumin Triglycerides Cholesterol LDL Cholesterol, Calc HDL Cholesterol Lipase 01/22/23 01/22/23 01/22/23 20:45 20:45 20:45 MCV MCH MCHC RDW Plt Count MPV Immature Gran % (Auto) Neut % (Auto) Lymph % (Auto) [place] % (Auto) Eos % (Auto) Baso % (Auto) Lymph # (Auto) [place] # (Auto) Eos # (Auto) Baso # (Auto) Abs Immat Gran (auto) Absolute Neuts (auto) Absolute Nucleated RBC Nucleated RBC % (auto) PT 11.1 Whole Blood PT INR 1.0 Whole Blood INR APTT 26.4 Anion Gap Cancelled Estim Creat Clear Calc Cancelled Estimated GFR Cancelled POC Glucose Random Glucose Cancelled Calcium Cancelled Total Bilirubin AST ALT Alkaline Phosphatase Total Creatine Kinase Cancelled Troponin I High Sens < 2.7 Total Protein Albumin Triglycerides Cholesterol LDL Cholesterol, Calc HDL Cholesterol Lipase 01/22/23 01/22/23 01/23/23 21:28 21:28 05:15 MCV 84.5 MCH 26.8 L MCHC 31.8 RDW 14.2 Plt Count 373 MPV 9.4 Immature Gran % (Auto) 0.4 Neut % (Auto) 53.6 Lymph % (Auto) 34.6 [place] % (Auto) 8.2 Eos % (Auto) 2.6 Baso % (Auto) 0.6 Lymph # (Auto) 2.5 [place] # (Auto) 0.6 Eos # (Auto) 0.2 Baso # (Auto) 0.0 Abs Immat Gran (auto) 0.03 Absolute Neuts (auto) 3.8 Absolute Nucleated RBC 0.000 Nucleated RBC % (auto) 0.0 PT Whole Blood PT INR Whole Blood INR APTT Anion Gap 12 Cancelled Estim Creat Clear Calc 121.8 Cancelled Estimated GFR > 60 Cancelled POC Glucose Random Glucose 85 Cancelled Calcium 8.8 Cancelled Total Bilirubin 0.2 Cancelled AST 10 Cancelled ALT 12 Cancelled Alkaline Phosphatase 72 Cancelled Total Creatine Kinase 124 Cancelled Troponin I High Sens Total Protein 6.9 Cancelled Albumin 3.9 Cancelled Triglycerides Cholesterol LDL Cholesterol, Calc HDL Cholesterol Lipase 30 01/23/23 05:15 MCV MCH MCHC RDW Plt Count MPV Immature Gran % (Auto) Neut % (Auto) Lymph % (Auto) [place] % (Auto) Eos % (Auto) Baso % (Auto) Lymph # (Auto) [place] # (Auto) Eos # (Auto) Baso # (Auto) Abs Immat Gran (auto) Absolute Neuts (auto) Absolute Nucleated RBC Nucleated RBC % (auto) PT Whole Blood PT INR Whole Blood INR APTT Anion Gap 8 L Estim Creat Clear Calc 114.9 Estimated GFR > 60 POC Glucose Random Glucose 101 Calcium 8.5 Total Bilirubin AST ALT Alkaline Phosphatase Total Creatine Kinase Troponin I High Sens Total Protein Albumin Triglycerides 75 Cholesterol 122 LDL Cholesterol, Calc 78 HDL Cholesterol 29 Lipase Assessment and Plan (1) Headache: Status: Acute Plan 42F pmh obesity, presented with right sided weakness and headache complicated migraine vs acute cva asa, statin, follow up mri, neuro, pt/ot obesity weight loss recommended dvt prophylaxis - lovenox full code Time Spent With Patient Time: Total time managing care of this patient today ____ minutes. Quality Stroke Does the patient have a stroke diagnosis?: No VTE Prior VTE?: No VTE Risk Level:: Medical - moderate - high VTE Device Contraindication: Treatment Not Indicated VTE Drug Contraindication: N/A - Med Ordered
[2023-01-23 12:00] VITALS: BP 128/71; PULSE 61; RESP 14; TEMP 36.6; O2SAT 99
--- NOTE | 2023-01-23 12:55 | PM.NEUROCN ---
History of Present Illness Data of Consult Service Date: 01/23/23 Primary Care Provider: [facility] Reason for consult: Right-sided weakness and headache 42 years old woman with headaches though headaches were sporadic and have not much happen during last year. She came to hospital with few days of a headache and then right face and arm weakness. When I saw her in emergency room her headaches were much better and weakness was resolved. There was no associated nausea or vomiting or change in personality. She denied any fever chills or cold or flu Review of Systems Review of Systems: No cold or flu-like illness PMFSH Past Medical History Medical History No known health problems Surgical History Surgical History H/O tubal ligation Social History Social History Alcohol intake: never Patient Tobacco Use Status: Tobacco use Unknown Smoked in Last 30 Days: No Use of substances other than those prescribed or required for medical reasons: No Advance Directives: No Advance Directives Information Provided: No Meds Allergies Allergy/AdvReac Type Severity Reaction Status Date / Time No Known Allergies Allergy Verified 01/22/23 19:49 [No Known Allergies*] Active Medications: Current Medications Acetaminophen (Acetaminophen 325 Mg Tablet) 650 mg PO Q6H PRN PRN Reason: Pain, Mild (Pain Scale 1-3) Aspirin (Aspirin Enteric Coated 81 Mg Tablet.) 81 mg PO DAILY [facility] Last Admin: 01/23/23 09:06 Dose: 81 mg Atorvastatin Calcium (Atorvastatin Calcium 80 Mg Tablet) 80 mg PO BEDTIME [facility] Enoxaparin Sodium (Enoxaparin Sodium 40 Mg/0.4 Ml Syringe) 40 mg SUBCUT Q24H [facility] Last Admin: 01/22/23 21:56 Dose: Not Given Melatonin (Melatonin 3 Mg Tablet) 6 mg PO BEDTIME PRN PRN Reason: Insomnia Ondansetron HCl (Ondansetron Hcl 4 Mg/2 Ml Vial) 4 mg IVPUSH Q8H PRN PRN Reason: Nausea and Vomiting Pharmacy Consult (Consult Rx Perform Med Rec) 1 each MISCELLANE ONCE PRN PRN Reason: Consult order Sodium Chloride (0.9 % Sodium Chloride Flush 3 Ml Syringe) 3 ml IVFLUSH QSHIFT [facility] Last Admin: 01/23/23 07:35 Dose: 3 ml Home Medications Medication Instructions Recorded Confirmed Last Taken Type No Known Home Meds 01/22/23 01/22/23 Unknown History Physical Exam Vital Signs: Vital Signs: Last Vital Signs Temp 97.9 F 01/23/23 12:00 Pulse 61 01/23/23 12:00 Resp 14 01/23/23 12:00 BP 128/71 01/23/23 12:00 Pulse Ox 99 01/23/23 12:00 O2 Del Method Room Air 01/23/23 12:00 BMI result Body Mass Index 39.4 Neuro: Other: Moderately obese woman in no acute distress. She is alert and awake with normal spontaneity of speech fluency comprehension and affect. Face is symmetrical. There is no focal weakness or drift. Deep tendon reflexes are absent with flat plantars Results Labs 01/23/23 05:15 01/23/23 05:15 Labs: Short CBC 01/22/23 01/23/23 Range/Units 20:45 05:15 WBC 8.7 7.2 (4.8-10.8) X10*3/uL Hgb 11.1 L 10.9 L (12.0-16.0) g/dl Hct 34.7 L 34.3 L (37.0-47.0) % Plt Count 378 373 (160-400) X10*3/uL BMP 01/22/23 01/22/23 01/22/23 20:45 21:28 21:28 Sodium Cancelled 140 Cancelled Potassium Cancelled 3.6 Cancelled Chloride Cancelled 111 H Cancelled Carbon Dioxide Cancelled 21 L Cancelled BUN Cancelled 11 Cancelled Creatinine Cancelled 0.67 Cancelled Calcium Cancelled 8.8 Cancelled 01/23/23 05:15 Sodium 140 Potassium 3.7 Chloride 111 H Carbon Dioxide 25 BUN 10 Creatinine 0.71 Calcium 8.5 Cardiac Enzymes 01/22/23 01/22/23 01/22/23 Range/Units 20:45 21:28 21:28 Total Creatine Kinase Cancelled 124 Cancelled Liver Function 01/22/23 01/22/23 Range/Units 21:28 21:28 Total Bilirubin 0.2 Cancelled (0.0-1.0) mg/dL AST 10 Cancelled (5-31) U/L ALT 12 Cancelled (0-31) U/L Alkaline Phosphatase 72 Cancelled (39-117) U/L Albumin 3.9 Cancelled (3.5-5.0) g/dL Noncontrast MRI of brain did not reveal any significant abnormality. Assessment and Plan (1) Migraine equivalent syndrome: Status: Acute (2) Complicated migraine: Status: Acute 42 years old woman who likely was suffering from complicated migraine. Initially she complained of right-sided weakness which is resolved. Headache is much better. Her examination is nonfocal and imaging has not reveal any significant abnormality. At this time she needed reassurance and education. I suggest sumatriptan 50 mg 1 q.day p.r.n. for headache control. Time Spent With Patient Time: Total time managing care of this patient today ____ minutes. Procedures Date of Service Date of Service: 01/23/23
--- NOTE | 2023-01-23 13:01 | PM.DS ---
DS: Providers Provider Date of Service: 01/23/23 Date of admission: 01/22/23 21:33 Primary care physician: [facility] Consults: 01/22/23 21:35 Consult to Neurology Routine Consulting Provider: [facility] Reason for consultation: complex migraine DS: Diagnosis Discharge Diagnosis (1) Migraine equivalent syndrome: Status: Acute (2) Complicated migraine: Status: Acute DS: Summary Hospital Course Hospital Course: from initial hpi: 42 year old female with no pertinent past medical history and not on prescription medications who presents to the emergency department for evaluation of headache.? Patient states it started on the day of presentation? while she was still laying down.? It was in the occipital region, constant and did not relieve with ibuprofen.? She had a similar headache about 3 years ago when she had an accident.? No history of migraine or stroke.? No history of essential hypertension, diabetes or mixed hyperlipidemia.? Patient states he also had associated right-sided extremity weakness.? She thinks that she was falling to the right when ambulating. The partner thinks that he noticed a right-sided facial droop. Also states that she had blurring of vision at the time of headache. No jerking movement of extremities, tongue bite, urinary or bowel incontinence.? No loss of consciousness.? Patient denies fever, chills, chest discomfort, palpitations, shortness of breath, abdominal pain, changes in urinary or bowel habits. In the emergency department, CT head and CTA negative.? Neurology was consulted who recommended admission and MRI in a.m.. hospital course: Patient was monitored for symptoms of right occipital headache and right-sided weakness. MRI was negative for acute CVA, most likely this is a complicated migraine. She was seen by neurology recommended sumatriptan 50 mg daily as needed. For obesity weight loss recommended. Patient is feeling better will be discharged home. Time Spent with Patient Time attestation: Total time managing care of this patient today ____ minutes. Discharge coordination time: Greater than 30 minutes Quality: Safe Use of Opioids Does Pt have an Active Cancer Diagnosis on the Problem List?: No Quality: Stroke Does the patient have a stroke diagnosis?: No Physical Exam Vital Signs: Vital Signs: Last Vital Signs Temp 97.9 F 01/23/23 12:00 Pulse 61 01/23/23 12:00 Resp 14 01/23/23 12:00 BP 128/71 06/08/23 12:00 Pulse Ox 99 01/23/23 12:00 O2 Del Method Room Air 01/23/23 12:00 BMI result Body Mass Index 39.4 General: AO X 3, no acute distress Resp: CTA bilateral, no accessory muscles used CVS: S1,S2,RRR GI: soft, non tender, non distended Neuro: motor grossly intact, alert Psych: appropriate affect, appropriate insight DS: Data Data Completed and Pending Labs on day of discharge: Laboratory Results - last 24 hr 01/22/23 01/22/23 01/22/23 20:16 20:17 20:45 WBC 8.7 RBC 4.13 L Hgb 11.1 L Hct 34.7 L MCV 84.0 MCH 26.9 L MCHC 32.0 RDW 14.4 Plt Count 378 MPV 9.2 L Immature Gran % (Auto) 0.5 H Neut % (Auto) 52.2 Lymph % (Auto) 37.5 [place] % (Auto) 7.0 Eos % (Auto) 2.3 Baso % (Auto) 0.5 Lymph # (Auto) 3.3 [place] # (Auto) 0.6 Eos # (Auto) 0.2 Baso # (Auto) 0.0 Abs Immat Gran (auto) 0.04 H Absolute Neuts (auto) 4.5 Absolute Nucleated RBC 0.000 Nucleated RBC % (auto) 0.0 PT Whole Blood PT 12.1 INR Whole Blood INR 1.0 APTT Sodium Potassium Chloride Carbon Dioxide Anion Gap BUN Creatinine Estim Creat Clear Calc Estimated GFR POC Glucose 92 Random Glucose Calcium Total Bilirubin AST ALT Alkaline Phosphatase Total Creatine Kinase Troponin I High Sens Total Protein Albumin Triglycerides Cholesterol LDL Cholesterol, Calc HDL Cholesterol Lipase 01/22/23 01/22/23 01/22/23 20:45 20:45 20:45 WBC RBC Hgb Hct MCV MCH MCHC RDW Plt Count MPV Immature Gran % (Auto) Neut % (Auto) Lymph % (Auto) [place] % (Auto) Eos % (Auto) Baso % (Auto) Lymph # (Auto) [place] # (Auto) Eos # (Auto) Baso # (Auto) Abs Immat Gran (auto) Absolute Neuts (auto) Absolute Nucleated RBC Nucleated RBC % (auto) PT 11.1 Whole Blood PT INR 1.0 Whole Blood INR APTT 26.4 Sodium Cancelled Potassium Cancelled Chloride Cancelled Carbon Dioxide Cancelled Anion Gap Cancelled BUN Cancelled Creatinine Cancelled Estim Creat Clear Calc Cancelled Estimated GFR Cancelled POC Glucose Random Glucose Cancelled Calcium Cancelled Total Bilirubin AST ALT Alkaline Phosphatase Total Creatine Kinase Cancelled Troponin I High Sens < 2.7 Total Protein Albumin Triglycerides Cholesterol LDL Cholesterol, Calc HDL Cholesterol Lipase 01/22/23 01/22/23 01/23/23 21:28 21:28 05:15 WBC 7.2 RBC 4.06 L Hgb 10.9 L Hct 34.3 L MCV 84.5 MCH 26.8 L MCHC 31.8 RDW 14.2 Plt Count 373 MPV 9.4 Immature Gran % (Auto) 0.4 Neut % (Auto) 53.6 Lymph % (Auto) 34.6 [place] % (Auto) 8.2 Eos % (Auto) 2.6 Baso % (Auto) 0.6 Lymph # (Auto) 2.5 [place] # (Auto) 0.6 Eos # (Auto) 0.2 Baso # (Auto) 0.0 Abs Immat Gran (auto) 0.03 Absolute Neuts (auto) 3.8 Absolute Nucleated RBC 0.000 Nucleated RBC % (auto) 0.0 PT Whole Blood PT INR Whole Blood INR APTT Sodium 140 Cancelled Potassium 3.6 Cancelled Chloride 111 H Cancelled Carbon Dioxide 21 L Cancelled Anion Gap 12 Cancelled BUN 11 Cancelled Creatinine 0.67 Cancelled Estim Creat Clear Calc 121.8 Cancelled Estimated GFR > 60 Cancelled POC Glucose Random Glucose 85 Cancelled Calcium 8.8 Cancelled Total Bilirubin 0.2 Cancelled AST 10 Cancelled ALT 12 Cancelled Alkaline Phosphatase 72 Cancelled Total Creatine Kinase 124 Cancelled Troponin I High Sens Total Protein 6.9 Cancelled Albumin 3.9 Cancelled Triglycerides Cholesterol LDL Cholesterol, Calc HDL Cholesterol Lipase 30 01/23/23 05:15 WBC RBC Hgb Hct MCV MCH MCHC RDW Plt Count MPV Immature Gran % (Auto) Neut % (Auto) Lymph % (Auto) [place] % (Auto) Eos % (Auto) Baso % (Auto) Lymph # (Auto) [place] # (Auto) Eos # (Auto) Baso # (Auto) Abs Immat Gran (auto) Absolute Neuts (auto) Absolute Nucleated RBC Nucleated RBC % (auto) PT Whole Blood PT INR Whole Blood INR APTT Sodium 140 Potassium 3.7 Chloride 111 H Carbon Dioxide 25 Anion Gap 8 L BUN 10 Creatinine 0.71 Estim Creat Clear Calc 114.9 Estimated GFR > 60 POC Glucose Random Glucose 101 Calcium 8.5 Total Bilirubin AST ALT Alkaline Phosphatase Total Creatine Kinase Troponin I High Sens Total Protein Albumin Triglycerides 75 Cholesterol 122 LDL Cholesterol, Calc 78 HDL Cholesterol 29 Lipase Discharge Plan Discharge Anticipated Discharge Date/Time: 01/23/23 12:59 Patient Disposition: Home, Self-Care Discharge Diagnosis: complicated migraine Referrals: [place] [Primary Care Provider] - 1 Week Discharge Medications: New sumatriptan succinate 50 mg tablet 50 mg PO Q24H PRN (Reason: migraine headache) Qty: 20 0RF Rx Instructions: do not exceed 4 doses per 24 hrs Discharge Orders: Discharge Order (Routine); Ordered 01/23/23 Ordered By: Rohan Aguirre Diet: Advance to usual diet Activity on Discharge: As tolerated Stand Alone Forms: Patient Portal Discharge page Care Plan Goals: avoid migraines Health Concerns: migraine Plan of Treatment: sumitriptan as needed Assessment: see above
--- NOTE | 2023-01-23 13:08 | MHC.CM.ED ---
Met with patient and green house manager in regards to discharge planning. Patient lives with her 4 children, ambulates independently and had no services prior to coming to the hospital. PCP verified as Dr Loredo. Patient received 3 Pfizer vaccines. Patient denies having a HCP. Information provided. Patient declining to complete one at this time. Obs notice explained and signed. Patient's family will transport patient home. Physical therapy and occupational therapy are recommending acute rehab. Patient does not feel she can realistically go to acute rehab because of her children. Patient requesting to return home with VNA. Referral made to [facility] at patient's request. Continue to monitor for d/c needs.
--- NOTE | 2023-01-23 13:13 | W.MHC.F2F ---
Service Date Service Date: 01/23/23 Encounter Date of encounter: 01/23/23 Reasons for Services Signs and symptoms assessed: headahce, right upper ext weakness Reason for physical therapy: home safety and mobility, therapeutic exercises and restore joint function Reason for occupational therapy: home safety and mobility, therapeutic exercises and restore joint function Homebound: Leaving the home is medically contraindicated at this time without the asist of a device and/or another person due th the listed conditions above and below. Reason homebound: other (weakness, headache) Certification: Based on the above findings, I certify that this patient is confined to the home and needs intermittent care home care, physical therapy and/or speech therapy, or continues to need occupational therapy. The patient is under my care, and I have initiated the establishment of the plan of care. The patient will be followed by a physician who will periodically review the plan of care. Time Spent With Patient Time: Total time managing care of this patient today ____ minutes.
== END 2023-01-23 14:38 | disposition home health service (06) ==
LOC: HO.ED 20:51 → HO.EDOVER 01-23 07:02
PROVIDERS: Physician Assistant; Admitting Provider Student in an Organized Health Care Education/Training Program; Emergency Provider Student in an Organized Health Care Education/Training Program; PCP Internal Medicine; Visit Provider Internal Medicine
DX: G43.109 Migraine with aura, not intractable, without status migrainosus (principal); R20.0 Anesthesia of skin; F07.81 Postconcussional syndrome; R53.1 Weakness
CPT/HCPCS: 36415; 70450; 70496; 70498; 70551; 80048; 80053; 80061; 82550; 82947; 83690; 84484; 85025; 85610; 85730; 93005; 96361; 96374; 96375; 97162; 97166; 99222; 99285; J1885; J2765; Q9967

== ENCOUNTER 2023-05-27 12:10 | Outpatient (REF) | payer MEDICAID, SELFPAY | END 2023-05-27 12:11 | disposition home or self-care (01) | LOC: HO.HHCX 12:10 | PROVIDERS: Visit Provider Internal Medicine | DX: M17.0 Bilateral primary osteoarthritis of knee (principal) | CPT/HCPCS: 73564 ==

== ENCOUNTER 2024-03-22 08:43 | Outpatient (REF) | payer MEDICAID, SELFPAY ==
[2024-03-23 09:23] LABS: Rubella IgG Antibody <0.90 Index; Rubeola IgG (Measles) <13.50 AU/mL
[2024-03-24 06:54] LABS: RPR Rapid Plasma Reagin NON-REACTIVE (NON-REACTIVE)
[2024-03-25 00:09] LABS: TS Negative Control Passed; TS Panel A 4; TS Panel B 1; TS Positive Control Passed; TSpotTB Negative (Negative)
== END 2024-03-22 08:44 | disposition home or self-care (01) ==
LOC: HO.LAB 08:43
PROVIDERS: PCP Internal Medicine; Visit Provider Internal Medicine
DX: Z02.89 Encounter for other administrative examinations (principal)
CPT/HCPCS: 36415; 86481; 86592; 86735; 86762; 86765

== ENCOUNTER 2025-02-25 11:42 | Outpatient (REF) | payer MEDICAID, SELFPAY ==
--- OUTSIDE RECORDS SUMMARY | 2025-02-25 12:11 | XMS_ITS | Encounter Summary ---
Author Organization [employer] Address [address] [place] [address] Care Team Providers Care Line Driver Name Role Phone Yamila Loredo MD Primary Care Provider + Reason for Visit * Reason Comments Med Refill Encounter Details Date Type Department Care Team (Late st Contact Info) Description 01/09/2024 Refill [facility] [address], [place] [phone] Monika Bettencourt MD [address] [place], [place] [phone] Acute maxillary sinusitis, recurrence not specified Social History Tobacco Use Types Packs/Day Years Used Date Smoking Tobacco: Never Smokeless Tobacco: Never Alcohol Use Standard Drinks/Week Comments Never 0 (1 standard drink = 0.6 oz pur e alcohol) PHQ-2 Answer Date Recorded Patient Health Questionnaire-2 Score 0 02/05/2023 Housing Stability Answer Date Recorded What is your housing situation today? I have negar whitlock 06/02/[address] you li ve. Do you have problems with any of the following? None of the above 06/02/2023 Food Insecurity Answer Date Recorded Within the past 12 months, y ou worried that your food would run out before you got money to buy more: Never True 06/02/2023 Within the past 12 months,th e food you bought just didn't last and you didn't have enough money to get more: Never True Transportation Answer Date Recorded In the past 12 months, has l ack of transportation kept you from medical appts, meetings, work or from getting things needed for daily living? No 06/02/2023 Utilities Answer Date Recorded In the past 12 months, has t he electric, gas, oil or water company threatened to shut off services in your home? No 06/02/2023 Depression Answer Date Recorded Patient Health Questionnaire-2 Score 0 02/05/2023 Comments Unknown Sex and Gender Information Value Date Recorded Sex Assigned at Female 06/17/2022 10:34 AM EDT Legal Sex Female 10:34 AM EDT Gender Identity Female 06/17/2022 10:34 AM EDT Sexual Orientation Choose not to disclose 2021 10:34 AM EDT documented as of this encounter Plan of Treatment Upcoming Encounters Date Type Department Care Team (Late st Contact Info) Description 03/18/2025 9:30 AM EDT Clinical Support [facility] [address] [place] [phone] [place] [address] 05/03/2025 10:30 AM EDT Procedure Visit [facility] [address] [place] [address] Yamila Loredo MD [address] [place] [address] 06/02/2025 1:00 PM EDT Office Visit [facility] [address] [place] [address] Ja, Kristin, OD [address] [place] [address] documented as of this encounter Visit Diagnoses Diagnosis Acute maxillary sinusitis, recurrence not specified documented in this encounter Care Teams Line Driver Relationship Specialty Start Date End Date Yamila Loredo MD [address] [place] [id number] PCP - General Family Medicine 03/09/18 documented as of this encounter
[2025-02-25 14:44] LABS: Anion Gap 11 (12-20); Blood Urea Nitrogen 12 mg/dL (9-16); Calcium 9.2 mg/dL (8.4-10.2); Carbon Dioxide 25 mmol/L (22-29); Chloride 107 mmol/L (96-108); Cholesterol 152 mg/dL (<200); Estimated Glomerular Filt Rate > 60; HDL Cholesterol 37 mg/dL (>40); Potassium 4.4 mmol/L (3.3-5.1); Sodium 139 mmol/L (135-145); Triglycerides 105 mg/dL (<150)
[2025-02-25 19:29] LABS: Reflex LDLD? No
[2025-02-26 08:27] LABS: Syphilis Screen Nonreactive (Nonreactive)
[2025-02-26 08:31] LABS: HIV Num 1 0.05 S/CO (0.00-0.99)
[2025-02-28 17:02] LABS: TS Negative Control Passed; TS Panel A 0; TS Panel B 0; TS Positive Control Passed; TSpotTB Negative (Negative)
== END 2025-02-25 11:43 | disposition home or self-care (01) ==
LOC: HO.HHCL 11:42
PROVIDERS: PCP Internal Medicine; Visit Provider Internal Medicine
DX: Z00.00 Encounter for general adult medical examination without abnormal findings (principal); E66.813 Obesity, class 3; Z68.41 Body mass index [BMI] 40.0-44.9, adult
CPT/HCPCS: 36415; 80048; 80061; 84443; 86481; 86780; 87389